=== PATIENT | female | born 1980 | race Caucasian/White ===

== ENCOUNTER 2016-08-23 05:52 | Observation (INO) | payer OTHER ==
[2016-08-23] MEDS ORDERED: ceFAZolin 2 GM/DEXTROSE 100 ML IV ONE (06:00)
[2016-08-23] MEDS ORDERED: PHENAZOPYRIDINE HCL 200 MG TAB PO ONE (06:00)
[2016-08-23] MEDS ORDERED: LR 1,000 ML IV ONE (06:00)
[2016-08-23] MEDS ORDERED: LIDOCAINE 1% 2 ML INJ ONE (06:04)
[2016-08-23] MEDS ORDERED: PROPOFOL 200 MG/20 ML VIAL ONE ×2 (06:55→06:56)
[2016-08-23] MEDS ORDERED: fentaNYL 100 MCG/2 ML INJ ONE ×3 (06:57→09:56)
[2016-08-23] MEDS ORDERED: BUPIVACAINE/EPI 0.5% 30 ML SDV ONE (07:03)
[2016-08-23] MEDS ORDERED: SKIN ADHESIVE (DERMABOND) 1 EACH TP ONE (07:04)
[2016-08-23] MEDS ORDERED: MIDAZOLAM 2 MG/2 ML VIAL ONE (07:19)
[2016-08-23] MEDS ORDERED: ONDANSETRON 4 MG/2 ML VIAL ONE (09:52)
[2016-08-23] MEDS ORDERED: HYDROmorphONE/DILAUDID 1 MG/ML SYR ONE (09:56)
--- NOTE | 2016-08-23 10:36 | GOP ---
[f rep st] OPERATIVE REPORT DATE OF OPERATION: 08/23/2016 SURGEON: Lito Hernandez MD PATIENT APPOINTMENT COORDINATOR: Tiff Rothman CFA. ANESTHESIA: General. PREOPERATIVE DIAGNOSIS: 1. Dysmenorrhea. 2. Pelvic pain. 3. Uterine fibroid. 4. Menorrhagia. POSTOPERATIVE DIAGNOSIS: 1. Dysmenorrhea. 2. Pelvic pain. 3. Uterine fibroid. 4. Menorrhagia. 5. Endometriosis procedures. PROCEDURE PERFORMED: 1. Robotic excision of endometriosis in posterior cul-de-sac and bilateral ovarian fossae. 2. Bilateral ureterolysis. 3. Anterior myomectomy. 4. Bilateral ovarian pexy. FINDINGS: SPECIMENS: 1. Pelvic peritoneum with endometriosis. 1. Uterine fibroid. 2. ESTIMATED BLOOD LOSS: Scant. DESCRIPTION OF PROCEDURE: Ellie was taken to the operating room. She was identified. General an esthesia was administered and found to be adequate. She was placed in the lithotomy position and pr epared and draped in normal sterile fashion. A Hulka tenaculum was placed in the uterus for manipul ation. A Wilson catheter was placed. A 1 cm infraumbilical incision was made with a scalpel. The Veress needle with the CO2 gas flowing was advanced into the peritoneal cavity. The abdomen was then insufflated with carbon dioxide gas. The 12 mm trocar followed by the laparoscope was then inserted. The upper abdomen was examined and was unremarkable. There was no evidence of endometriosis on either diaphragm, liver, or stomach. There were no lesions in the upper abdominal bowel. Two lateral ports placed in the right, one on t he left under direct visualization. She then was placed in Trendelenburg position, and the da Camila robot docked on the left side. Instruments were then brought into the abdominal cavity under direc t visualization. The patient had several areas of endometriosis in the posterior cul-de-sac and bilateral ovarian fos brenden overlying both ureters. The anterior cul-de-sac was free. There was no lesion seen on the uter us, tubes, or ovaries. The patient did have an anterior uterine fibroid. The pelvic peritoneum in the posterior cul-de-sac was completely excised from the distal rectum up t o the cervix and laterally to both uterosacral ligaments. Because the lesions in the ovarian fossae were overlying the ureters, a bilateral ureterolysis was required. The peritoneum at the pelvic br im was incised. The ureter was gently dissected free. The ureter was lateralized from the pelvic b rim down to where it crossed underneath the left uterine artery. Once it was from the ove rlying peritoneum and endometriosis, the entire peritoneum with attached endometriosis was completel y excised extending all the way down to the cervix and uterosacral ligament on the left. The exact same procedure was then performed on the patient's right side, again, requiring a ureterolysis. Attention was then turned to the myomectomy. The serosal surface was incised with the laparoscopic scissors. Gentle dissection was performed to remove the lesion from the surrounding myometrium. Th e defect was then closed in 2 layers with 2-0 V-Loc 90 suture. The pelvis was then irrigated with s terile saline, and hemostasis was present. A bilateral ovarian pexy was performed by attaching the ovaries near the utero-ovarian ligament to the ipsilateral round ligaments near the internal inguina l rings. This was accomplished with 3-0 Vicryl Rapide suture. One sheet of Interceed was then plac ed in the posterior cul-de-sac and 1 over the anterior myomectomy defect to try to minimize postoper ative adhesion formation. The robot was then undocked. The specimens were removed. The fascia was closed with 0 Vicryl. Skin with 4-0 Monocryl and surgical adhesive. Anesthesia was reversed, and patient taken to the PACU awake in stable condition. COMPLICATIONS: None. DISPOSITION: Patient stable to PACU. /[id number]/MODL
[2016-08-23] MEDS ORDERED: OXYCODONE/APAP 5/325 TAB PO PRN (11:35)
[2016-08-23] MEDS ORDERED: HYDROmorphONE/DILAUDID 1 MG/ML SYR IVP PRN (11:37)
[2016-08-23] MEDS ORDERED: PROMETHAZINE HCL 25 MG/ML INJ IVP PRN (11:40)
[2016-08-23] MEDS ORDERED: LR 1,000 ML IV SCH (12:00)
[2016-08-23 13:40] VITALS: TEMP 97.5
[2016-08-23 15:47] VITALS: BP 120/66; PULSE 60; RESP 16; O2SAT 98
--- NOTE | 2016-09-18 16:52 | GPROG ---
[f rep st] PROGRESS NOTE ANESTHESIA POSTOPERATIVE NOTE The patient's chart has been reviewed and the patient had no anesthesia complications. /[id number]/MODL
== END 2016-08-23 16:47 | disposition home or self-care (01) ==
LOC: F3E 05:52
PROVIDERS: ADMIT Obstetrics & Gynecology; ATTEND Obstetrics & Gynecology
PROC: 0UB94ZZ Excision of Uterus, Percutaneous Endoscopic Approach (ICD-10-PCS; principal; 2016-08-23 07:15)
PROC: 0UBF4ZZ Excision of Cul-de-sac, Percutaneous Endoscopic Approach (ICD-10-PCS; principal; 2016-08-23 07:15)
PROC: 0UB24ZZ Excision of Bilateral Ovaries, Percutaneous Endoscopic Approach (ICD-10-PCS; principal; 2016-08-23 07:15)
DX: N80.3 Endometriosis of pelvic peritoneum (principal); D25.1 Intramural leiomyoma of uterus; N94.10 Unspecified dyspareunia
CPT/HCPCS: 58545; 58662; C1765; J0690; J1170; J2250; J2405; J2704; J3010

== ENCOUNTER 2016-10-31 13:44 | Emergency (ER) | payer OTHER ==
--- NOTE | 2016-10-31 15:00 | EDPHY ---
HPI/HX/ROS/PE/MDM Narrative: CHIEF COMPLAINT: RLQ Abdominal pain. HISTORY OF PRESENT ILLNESS: The patient is a 35-year-old female s/p laparoscopic surgery for endometriosis and fibroids 2 months ago, who presents with right lower quadrant pain. The patient felt fine after surgery. A few weeks ago she developed deep right lower quadrant pain that radiates into her right hip and right flank. This pain has remained constant. Over the past week this pain has worsened. This weekend, 3 days ago, she tried stretching her right abs with a medicine ball and felt a "squishing" sensation that she describes as "bubble wrap in a sponge". Her pain in the RLQ became severe and radiated into her back and across her abdomen. She has since had difficulty sleeping due to pain with associated nausea. She denies fever, chills, chest pain, vomiting, or diarrhea. No vaginal bleeding. She notes increased pain with passing gas as well as at the end of her urine stream, no dysuria or hematuria. She has an IUD in place and has not had a menstrual cycle for some time. REVIEW OF SYSTEMS: Aside from elements discussed in the HPI, a comprehensive 10-point review of systems was reviewed and is negative. 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 VITAL SIGNS: Reviewed by me GENERAL: Well-developed, well-nourished, resting comfortably in no respiratory distress. HEENT: Atraumatic. Eyes: No icterus, no injection. Mouth: moist mucous membranes. No erythema or lesions. Neck: supple with no adenopathy. LUNGS: Clear to auscultation bilaterally, no wheezes, rhonchi or rales. CARDIAC: Regular rate and rhythm, no rubs, murmurs or gallops. ABDOMEN: Mild tenderness right adnexa and right flank pain, no guarding, no rebound, no crepitus. BACK: No CVA tenderness. EXTREMITIES: No trauma. No edema. Range of motion is normal throughout. FROM of hip, internal and external rotations are non-painful. NEURO: Alert and oriented, grossly nonfocal. SKIN: Warm and dry, no rash. PSYCHIATRIC: Normal mentation, no agitation. Portions of this note were transcribed by a medical aide. I personally performed a history, physical exam, medical decision making, and confirmed accuracy of information the transcribed note. ED Course: Patient with history of endometriosis who presents with RLQ abdominal pain. Associated nausea, no emesis. No vaginal bleeding. Plan to check labs and urinalysis. CT abdomen/pelvis ordered. WBC is normal. Lab work is otherwise unremarkable. Glucose is elevated at 238. CT imaging shows right hemorrhagic cyst. No torsion. No signs of air in the soft tissues. Patient feels comfortable being discharged to home with regular doses of nonsteroidals as well as [place] to use as needed for more severe pain. She will follow up with her primary obstetrics/gynecology nurse for re-examination and serial ultrasounds as needed. MDM: The differential diagnosis for the patient's abdominal pain was considered including but not limited to ovarian cyst, intra-abdominal free air, subcutaneous air, pelvic inflammatory disease, ovarian cysts, ovarian torsion, urinary tract infection, related complications, and appendicitis. - Data Points Imaging Results: Imaging Impressions Abdomen CT 10/31/16 15:19 Impression: 1. Hemorrhagic cyst suspected right ovary. 2. No CT evidence of appendicitis, abscess or bowel obstruction. Findings discussed with Ingrid Lund MD at 16:32 hour, 10/31/2016. Imaging: Discussed imaging studies w/ bingo caller Radiologist Laboratory Results: Laboratory Results 10/31/16 15:02 10/31/16 15:02 10/31/16 10/31/16 10/31/16 16:20 15:02 15:02 WBC RBC Hgb Hct MCV MCH MCHC RDW Plt Count MPV Neut % (Auto) Lymph % (Auto) [place] % (Auto) Eos % (Auto) Baso % (Auto) Nucleat RBC Rel Count Absolute Neuts (auto) Absolute Lymphs (auto) Absolute Monos (auto) Absolute Eos (auto) Absolute Basos (auto) Absolute Nucleated RBC Immature Gran % Seg Neutrophils % Lymphocytes % Monocytes % Eosinophils % Immature Gran # Absolute Seg Neuts Absolute Lymphocytes Absolute Monocytes Absolute Eosinophils RBC/WBC/PLT Morphology Atypical Lymphocytes Platelet Estimate Sodium 134 mEq/L mEq/L (134-144) Potassium 3.7 mEq/L mEq/L (3.5-5.2) Chloride 100 mEq/L mEq/L (97-110) Carbon Dioxide 23 mEq/l mEq/l (22-31) Anion Gap 11 mEq/L mEq/L (8-16) BUN 8 mg/dL mg/dL (7-23) Creatinine 0.8 mg/dL mg/dL (0.6-1.0) Estimated GFR > 60 Glucose 238 mg/dL H mg/dL (70-100) Calcium 9.3 mg/dL mg/dL (8.5-10.4) Beta HCG, Qual NEGATIVE Urine Color PALE YELLOW Urine Appearance HAZY Urine pH 6.0 (5.0-7.5) Ur Specific [place] 1.005 (1.002-1.030) Urine Protein NEGATIVE (NEGATIVE) Urine Ketones NEGATIVE (NEGATIVE) Urine Blood NEGATIVE (NEGATIVE) Urine Nitrate NEGATIVE (NEGATIVE) Urine Bilirubin NEGATIVE (NEGATIVE) Urine Urobilinogen NEGATIVE EU EU (0.2-1.0) Ur Leukocyte Esterase NEGATIVE (NEGATIVE) Urine RBC NONE SEEN /hpf /hpf (0-3) Urine WBC NONE SEEN /hpf /hpf (0-3) Ur Epithelial Cells 1+ /lpf /lpf (NONE-1+) Urine Bacteria TRACE /hpf H /hpf (NONE SEEN) Urine Glucose 2+ H (NEGATIVE) 10/31/16 15:02 WBC 6.03 10^3/uL 10^3/uL (3.80-9.50) RBC 4.42 10^6/uL 10^6/uL (4.18-5.33) Hgb 13.3 g/dL g/dL (12.6-16.3) Hct 39.1 % % (38.0-47.0) MCV 88.5 fL fL (81.5-99.8) MCH 30.1 pg pg (27.9-34.1) MCHC 34.0 g/dL g/dL (32.4-36.7) RDW 13.2 % % (11.5-15.2) Plt Count 216 10^3/uL 10^3/uL (150-400) MPV 10.1 fL fL (8.7-11.7) Neut % (Auto) 60.3 % % (39.3-74.2) Lymph % (Auto) 23.7 % % (15.0-45.0) [place] % (Auto) 13.8 % H % (4.5-13.0) Eos % (Auto) 1.0 % % (0.6-7.6) Baso % (Auto) 0.5 % % (0.3-1.7) Nucleat RBC Rel Count 0.0 % % (0.0-0.2) Absolute Neuts (auto) 3.64 10^3/uL 10^3/uL (1.70-6.50) Absolute Lymphs (auto) 1.43 10^3/uL 10^3/uL (1.00-3.00) Absolute Monos (auto) 0.83 10^3/uL H 10^3/uL (0.30-0.80) Absolute Eos (auto) 0.06 10^3/uL 10^3/uL (0.03-0.40) Absolute Basos (auto) 0.03 10^3/uL 10^3/uL (0.02-0.10) Absolute Nucleated RBC 0.00 10^3/uL 10^3/uL (0-0.01) Immature Gran % 0.7 % % (0.0-1.1) Seg Neutrophils % 61 % % Lymphocytes % 22 % % Monocytes % 16 % % Eosinophils % 1 % % Immature Gran # 0.04 10^3/uL 10^3/uL (0.00-0.10) Absolute Seg Neuts 3.68 10^/uL 10^/uL (1.70-6.50) Absolute Lymphocytes 1.33 10^3/uL 10^3/uL (1.00-3.00) Absolute Monocytes 0.96 10^3/uL H 10^3/uL (0.30-0.80) Absolute Eosinophils 0.06 10^3/uL 10^3/uL (0.03-0.40) RBC/WBC/PLT Morphology NORMAL (NORMAL) Atypical Lymphocytes 1+ H Platelet Estimate ADEQUATE (ADEQ) Sodium Potassium Chloride Carbon Dioxide Anion Gap BUN Creatinine Estimated GFR Glucose Calcium Beta HCG, Qual Urine Color Urine Appearance Urine pH Ur Specific [place] Urine Protein Urine Ketones Urine Blood Urine Nitrate Urine Bilirubin Urine Urobilinogen Ur Leukocyte Esterase Urine RBC Urine WBC Ur Epithelial Cells Urine Bacteria Urine Glucose Medications Given: Discontinued Medications Sodium Chloride (Ns) 1,000 mls @ 0 mls/hr IV ONCE ONE; Wide Open PRN Reason: Protocol Stop: 10/31/16 15:18 Last Admin: 10/31/16 15:31 Dose: 1,000 mls Ketorolac Tromethamine (Toradol) 30 mg IVP EDNOW ONE Stop: 10/31/16 17:10 Last Admin: 10/31/16 17:12 Dose: 30 mg General Time Seen by Provider: 10/31/16 14:58 Initial Vital Signs: Initial Vital Signs Temperature (C) 37.2 C 10/31/16 14:08 Heart Rate 74 10/31/16 14:08 Respiratory Rate 18 10/31/16 14:08 Blood Pressure 113/76 10/31/16 14:08 O2 Sat (%) 96 10/31/16 14:08 O2 Delivery Mode Room Air Allergies/Adverse Reactions: No Known Allergies Allergy (Verified 10/31/16 14:08) Home Medications: Medication Instructions Recorded Insulin Glargine,Hum.rec.anlog 18 unit SQ DAILY 08/02/16 [Lantus Solostar] Insulin Lispro [Humalog Kwikpen 0 unit SQ TIDMEAL 08/02/16 U-100] Hydrocodone/APAP 5/325 [[place] 1 tab PO Q6H PRN #10 tab 10/31/16 5/325 (RX)] Departure - Departure Disposition: Home, Routine, Self-Care Clinical Impression: Ovarian cyst, Right adnexal pain Condition: Good Instructions: Ovarian Cyst (ED) Additional Instructions: I recommend Ibuprofen (Motrin, Advil) or Naproxen Sodium (Aleve) for pain and anti-inflammatory effects. You may take either one, but do not take both. Your dose is: Ibuprofen 600 mg every 6-8 hours with food. OR Naproxen Sodium ( Aleve) 220 mg every 12 hours. If pain is severe, take [place] as directed. Followup with your Surgical Rn if pain persists. There is a small amount of bacteria found in your urine. It was sent for culture , if problematic we will contact you. Referrals: Giuseppe Celestin [Primary Care Provider] - As per Instructions Prescriptions: Hydrocodone/APAP 5/325 [[place] 5/325 (RX)] 1 tab PO Q6H PRN #10 tab PRN Reason: Pain Report Scribed for: Ingrid Lund Report Scribed by: Nurys Barrientos Date of Report: 10/31/16 Time of Report: 15:19
[2016-10-31] MEDS ORDERED: NS 1,000 ML IV ONE (15:17)
[2016-10-31 15:29] LABS: % IMMATURE GRANULYOCYTES 0.7 % (0.0-1.1); ABSOLUTE IMMATURE GRANULOCYTES 0.04 10^3/uL (0.00-0.10); ADD DIFF? NO; ADD MORPH? NO; ADD SCAN? YES; ATYPICAL LYMPHOCYTE FLAG 150 (0-99); FRAGMENT RBC FLAG 0 (0-99); HEMATOCRIT 39.1 % (38.0-47.0); HEMOGLOBIN 13.3 g/dL (12.6-16.3); LEFT SHIFT FLG 10 (0-99); LIPEMIA HEMOLYSIS FLAG 90 (0-99); MEAN CELL HEMOGLOBIN 30.1 pg (27.9-34.1); MEAN CELL VOLUME 88.5 fL (81.5-99.8); MEAN PLATELET VOLUME 10.1 fL (8.7-11.7); PLATELET CLUMPS FLAG 0 (0-99); PLATELET COUNT 216 10^3/uL (150-400); RED BLOOD CELL COUNT 4.42 10^6/uL (4.18-5.33); RED CELL DISTRIBUTION WIDTH 13.2 % (11.5-15.2)
[2016-10-31 15:39] LABS: ANION GAP 11 mEq/L (8-16); CALCIUM 9.3 mg/dL (8.5-10.4); CARBON DIOXIDE 23 mEq/l (22-31); CHLORIDE 100 mEq/L (97-110); CREATININE 0.8 mg/dL (0.6-1.0); GLOMERULAR FILTRATION RATE > 60; GLUCOSE 238 mg/dL (70-100); POTASSIUM 3.7 mEq/L (3.5-5.2); SODIUM 134 mEq/L (134-144)
[2016-10-31 16:04] LABS: SCAN POSITIVE
[2016-10-31 16:08] LABS: PLATELET ESTIMATE ADEQUATE (ADEQ)
[2016-10-31] MEDS ORDERED: IOPAMIDOL (ISOVUE-300) 100 ML BTL ONE (16:08)
[2016-10-31 16:46] LABS: COLOR PALE YELLOW; LEUKOCYTE ESTERASE,URINE NEGATIVE (NEGATIVE); NITRITE,URINE NEGATIVE (NEGATIVE)
[2016-10-31 16:54] LABS: BACTERIA TRACE /hpf (NONE SEEN)
[2016-10-31 17:07] VITALS: BP 122/67; PULSE 65; RESP 16; O2SAT 98
[2016-10-31 17:09] VITALS: TEMP 97.7
[2016-10-31 17:09] LABS: RBC,URINE NONE SEEN /hpf (0-3); WBC,URINE NONE SEEN /hpf (0-3)
[2016-10-31] MEDS ORDERED: KETOROLAC 30 MG/1 ML SDV IVP ONE (17:09)
== END 2016-10-31 17:20 | disposition home or self-care (01) ==
DX: N83.209 Unspecified ovarian cyst, unspecified side (principal); E11.9 Type 2 diabetes mellitus without complications; Z79.4 Long term (current) use of insulin
CPT/HCPCS: 96374; Q9967

== ENCOUNTER 2018-02-24 19:42 | Emergency (ER) | payer BC, OTHER ==
[2018-02-24] MEDS ORDERED: SKIN ADHESIVE (DERMABOND) 1 EACH TP ONE (21:32)
--- NOTE | 2018-02-24 22:04 | EDPHY ---
H & P Time Seen by Provider: 02/24/18 20:18 HPI/ROS: Chief complaint: Left 2nd finger laceration History of present illness: This is a 37-year-old female who presents to the emergency department for left 2nd finger laceration. She states she struck the tip of her finger against a emblem fuser tender. She sustained a small cut. Mild pain. Mild bleeding controlled with a dressing. No report of paresthesias or abnormal coolness. She can still move the finger well. She is not sure if her tetanus is up-to-date. Smoking Status: Never smoked Physical Exam: General: Alert, nontoxic. Skin: There is a small 0.5 cm laceration that involves the rim of the fingernail the left 2nd finger with associated laceration of the fingernail. These approximate well on their own. Musculoskeletal: Good range of motion and strength with both flexion and extension in the DIP, PIP and MCP joint. Vascular: Capillary refill brisk in the left 2nd finger. Radial pulse 2 +. Neurologic: Sensation intact using light touch and two-point discrimination the left 2nd finger. Constitutional: Initial Vital Signs Temperature (C) 36.6 C 02/24/18 19:44 Heart Rate 70 02/24/18 19:44 Respiratory Rate 16 02/24/18 19:44 Blood Pressure 131/75 H 02/24/18 19:44 O2 Sat (%) 98 02/24/18 19:44 O2 Delivery Mode Room Air Allergies/Adverse Reactions: No Known Allergies Allergy (Verified 02/24/18 19:46) Home Medications: Medication Instructions Recorded Insulin Glargine,Hum.rec.anlog 18 unit SQ DAILY 08/02/16 [Lantus Solostar] Insulin Lispro [Humalog Kwikpen 0 unit SQ TIDMEAL 08/02/16 U-100] Birthcontrol 02/24/18 MDM/Departure - MDM Imaging Results: Imaging Impressions Finger X-Ray 02/24/18 20:46 Impression: Left second distal phalanx oblique nondisplaced distal tuft fracture. Imaging: I viewed and interpreted images myself Medications Given: Patient seen under the supervision of my secondary supervising physician Dr. Jeffrey Church. Patient presents to the emergency department for a laceration of the tip of her left 2nd finger. This is a very small laceration around the rim of the fingernail, it does appear to extend through the nail. However these wounds approximate on their own. I am not able to pull them apart. The finger is neurovascularly intact. The wound was derma bonded and the finger was splinted. Patient is unsure about her tetanus status. I offered a new tetanus immunization this evening. She has elected to contact her doctor tomorrow to see if she is up-to-date and if not to get one arranged by her doctor. I initially read the x-ray as negative, I did not see a fracture and she was discharged home. However radiologic over-read does show a tuft fracture. Technically this is an open fracture. I have called the patient and left a message for her to call us back. I have also left a message with my attending physician Dr. Tinoco who will ask the charge nurse to call the patient in the morning. She should be started on antibiotics and referred to a hand surgeon. ED Course/Re-evaluation: Included but not limited to superficial injury, nail bed injury, deep structure injury including fracture, foreign body contamination - Depart Disposition: Home, Routine, Self-Care Clinical Impression: Laceration Condition: Good Instructions: Laceration (ED), Skin Adhesive Care (ED) Additional Instructions: Follow-up with a primary care doctor next week for recheck Call your doctor to find out if you're tetanus is up-to-date, if it is not have your doctor arrange this If symptoms worsen or new symptoms develop return to the emergency department for recheck Referrals: Giuseppe Celestin [Primary Care Provider] - As per Instructions
[2018-02-24 22:13] VITALS: BP 125/68
== END 2018-02-24 22:11 | disposition home or self-care (01) ==
PROC: 0HQGXZZ Repair Left Hand Skin, External Approach (ICD-10-PCS; principal; 2018-02-24)
DX: S61.211A Laceration without foreign body of left index finger without damage to nail, initial encounter (principal); W27.4XXA Contact with kitchen utensil, initial encounter